=== PATIENT | female | born 1970 | race Caucasian/White ===

== ENCOUNTER 2018-12-13 19:10 | Emergency (ER) | payer OTHER ==
[~2018-12-13] VITALS: Ht 177.8 cm; Wt 67.1 kg
[2018-12-13 19:12] VITALS: BP 132/92
[2018-12-13] MEDS ORDERED: ADDERALL XR 2525 MG PO (19:23)
[2018-12-13] MEDS ORDERED: AMBIEN 10 MG TA10 MG PO (19:24)
[2018-12-13] MEDS ORDERED: CELEXA 10 MG TA10 M1 PO (19:24)
[2018-12-13] MEDS ORDERED: SENNA-DOCUSATE1 EAC1 PO (19:48)
[2018-12-13] MEDS ORDERED: NORFLEX100 MG PO (19:48)
[2018-12-13] MEDS ORDERED: NORCO 5-325 TA1 EAC1 PO (19:48)
== END 2018-12-13 19:45 | disposition home or self-care (01) ==
LOC: ER 19:10
DX: S16.1XXA Strain of muscle, fascia and tendon at neck level, initial encounter (principal); S50.12XA Contusion of left forearm, initial encounter; F90.9 Attention-deficit hyperactivity disorder, unspecified type; V43.52XA Car driver injured in collision with other type car in traffic accident, initial encounter; Y93.89 Activity, other specified; Y92.89 Other specified places as the place of occurrence of the external cause; Y99.8 Other external cause status